=== PATIENT | female | born 1970 | race Caucasian/White ===

== ENCOUNTER 2018-07-17 12:25 | Emergency (ER) | payer OTHER ==
[~2018-07-17] VITALS: Ht 177.8 cm; Wt 84.8 kg
[2018-07-17] MEDS ORDERED: NKM (12:44)
[2018-07-17 12:45] VITALS: BP 124/75
--- NOTE | 2018-07-17 13:29 | Emergency Room Report ---
History of Present Illness General Chief Complaint: Pain Source: Patient Present Illness HPI 47-year-old female presents to the emergency department complaining of localized swelling, tenderness, skin discoloration and warmth to the Left thumb 3 days. Patient reports she was able to squeeze some pus out of the cuticle area last night however her symptoms continue. Patient states she is up-to- date with tetanus vaccination. Patient denies trauma to the affected extremity. Denies hx of immune compromise. pain exacerbated with palpation. Allergies: Coded Allergies: No Known Allergies (Unverified , 07/17/18) Patient History Past Medical History: see triage record Past Surgical History: none Pertinent Family History: none Last Menstrual Period: One week ago Now: No Reviewed Nursing Documentation: PMH: Agreed; PSxH: Agreed Nursing Documentation-PMH Past Medical History: No Stated History Review of Systems All Other Systems: negative except mentioned in HPI Physical Exam Vital Signs Date Time Temp Pulse Resp B/P (MAP) Pulse Ox O2 Delivery O2 Flow Rate FiO2 07/17/18 12:39 98.2 88 16 124/75 99 Room Air Sp02 EP Interpretation: reviewed, normal General Appearance: no apparent distress, alert, GCS 15, non-toxic Head: normocephalic, atraumatic Eyes: bilateral eye normal inspection, bilateral eye PERRL ENT: hearing grossly normal, normal voice Neck: full range of motion Respiratory: lungs clear, normal breath sounds, speaking full sentences Cardiovascular #1: regular rate, rhythm Musculoskeletal: back normal, gait/station normal, normal range of motion, non- tender, tender - Superficial TTP, no bony ttp, There is Swelling , erythema, and purulence/fluctuance under the medial aspect of the cuticle of the right thumb. Neurologic: alert, oriented x3, responsive, motor strength/tone normal, sensory intact, speech normal, grossly normal Psychiatric: judgement/insight normal Skin: no rash, warm/dry, well hydrated, other - Swelling , erythema, and purulence/fluctuance under the medial aspect of the cuticle of the right thumb. Procedures Incision and Drainage Incision and Drainage : Consent: Verbal Site: left thumb Blade Size: 11 I & D Procedure: betadine prep, sterile drapes applied, sterile dressing applied Wound Location: upper extremity - left thumb Wound's Depth, Shape: superficial Wound Length (cm): 1 Wound Explored: contaminated - purulent d/c Splint Applied?: No Sling Applied?: No Patient Tolerated: Well Complications: None Progress Small incision using a No. 11 blade scalpel to drain the paronychia. pt. tolerated well without complication. Medical Decision Making PA Attestation Dr. Cevallos is my supervising Physician whom patient management has been discussed with. Diagnostic Impression: Primary Impression: Paronychia of thumb, left ER Course 47-year-old female presents to the emergency department complaining of localized swelling, tenderness, skin discoloration and warmth to the Left thumb 3 days. Patient reports she was able to squeeze some pus out of the cuticle area last night however her symptoms continue. Patient states she is up-to- date with tetanus vaccination. Patient denies trauma to the affected extremity. Denies hx of immune compromise. pain exacerbated with palpation. Ddx considered but are not limited to cellulitis, paronychia, eponychia, ingrown toe nail, fracture, d/L, gout Vital signs: are WNL, pt. is afebrile H&PE are most consistent with left middle finger paronychia ORDERS: none required at this time, the diagnosis is clinical ED INTERVENTIONS: - verbal consent was received . - lesion was cleaned with betadine prep. - Small incision using a No. 11 blade scalpel to drain the paronychia. pt. tolerated well without complication. - sterile band-aid was then applied afterward. - will d/c pt. with PO abx. DISCHARGE: At this time pt. is stable for d/c to home. Will provide printed patient care instructions, and any necessary prescriptions. Care plan and follow up instructions have been discussed with the patient prior to discharge. Last Vital Signs Date Time Temp Pulse Resp B/P (MAP) Pulse Ox O2 Delivery O2 Flow Rate FiO2 07/17/18 12:39 98.2 88 16 124/75 99 Room Air Disposition: HOME, SELF-CARE Condition: Stable Scripts Mupirocin* (MUPIROCIN*) 22 Gm Oint...g. 1 APPLIC TOPIC THREE TIMES A DAY, #22 GM Prov: Yamilex Mckenna 07/17/18 Clindamycin HCl (Clindamycin HCl) 300 Mg Capsule 150 MG ORAL Q6H for 7 Days, #28 CAP Prov: Yamilex Mckenna 07/17/18 Referrals: NON PHYSICIAN (PCP) Patient Instructions: Paronychia, [id number] Additional Instructions: Take medications as directed. Follow up with a Primary Care Provider in 3-5 days, even if your symptoms have resolved. --Please review list of primary care clinics, if you do not already have a primary care provider Return sooner to ED if new symptoms occur, or current symptoms become worse. - Please note that this Emergency Department Report was dictated using [employer] technology software, occasionally this can lead to erroneous entry secondary to interpretation by the dictation equipment. Yamilex Mckenna Jul 17, 2018 13:29
[2018-07-17] MEDS ORDERED: CLEOCIN150 MG ORAL (13:31)
[2018-07-17] MEDS ORDERED: MUPIROCIN22 GM TOPIC (13:31)
[2018-07-17 14:04] VITALS: BP 124/75
== END 2018-07-17 14:06 | disposition home or self-care (01) ==
LOC: EMR 13:00
DX: L03.012 Cellulitis of left finger (principal)
CPT/HCPCS: 99283